=== PATIENT | female | born 1985 ===

== ENCOUNTER 2023-10-10 11:45 | Inpatient (IN) | payer OTHER ==
[~2023-10-10] VITALS: Ht 160 cm; Wt 86.2 kg
[2023-10-10 13:49] LABS: HEMATOCRIT 37.5 % (36.0-45.00); HEMOGLOBIN 12.5 g/dL (12.0-15.00); MEAN CELL VOLUME 87.4 fL (80.00-100.00); MEAN CORPUSCULAR HGB CONC 33.2 g/dl (32.0-36.0); PLATELET COUNT 215 K/uL (150-450); RED CELL DISTRIBUTION WIDTH 15.1 % (11.5-14.5)
[2023-10-10 14:02] LABS: URINE APPEARANCE Clear; URINE BILIRRUBIN Negative (NEGATIVE); URINE BLOOD Negative; URINE COLOR Yellow; URINE GLUCOSE Negative (NEGATIVE); URINE LEUKOCYTE Moderate; URINE NITRATE Negative; URINE PROTEIN Negative (NEGATIVE); URINE UROBILINOGEN 0.2 E.U./dl
[2023-10-10 14:06] LABS: URINE BACTERIA 733.1 uL (0.0-1933); URINE EPITHELIAL CELLS 15.6 uL (0.0-38.8); URINE RBC 4.3 uL (0.0-20.8); URINE WBC 106.3 uL (0.0-23.2)
[2023-10-10 14:18] LABS: INR 0.96; PARTIAL THROMBOPLASTIN TIME 25.2 SECONDS (22.0-34.0); PROTHROMBIN TIME 10.1 SECONDS (9.0-11.5)
[2023-10-10 14:30] LABS: ALBUMIN 3.6 gm/dL (3.4-5.0); BILIRUBIN TOTAL 0.55 mg/dL (0.3-1.2); CALCIUM 8.9 mg/dL (8.5-10.1); CREATININE SERUM 0.92 mg/dL (0.55-1.02); GFR 67.61; POTASSIUM 4.31 mEq/L (3.5-5.1); TOTAL PROTEIN 7.6 gm/dL (6.4-8.2)
[2023-10-14] MEDS ORDERED: CEFAZOLIN SODIUM 1,000 MG VIAL ONE (08:42)
[2023-10-14] MEDS ORDERED: POVIDONE-IODINE 118 ML BOTT TOP ONE (08:42)
[2023-10-14] MEDS ORDERED: CEFAZOLIN SODIUM 1,000 MG VIAL IV ONE (09:30)
[2023-10-14] MEDS ORDERED: THROMBIN,HU/FIBRINOGEN/CALCIUM 10 ML SYRINGE TOP ONE ×2 (11:51→12:00)
[2023-10-14] MEDS ORDERED: MEPERIDINE HCL/PF 50 MG/ML VIAL IV PRN (12:45)
[2023-10-14] MEDS ORDERED: RINGERS SOLUTION,LACTATED 1,000 ML IV SCH (12:45)
[2023-10-14] MEDS ORDERED: PROMETHAZINE HCL 25 MG/ML AMPUL IV PRN (12:45)
[2023-10-14 16:48] LABS: HEMOGLOBIN 11.3 g/dL (12.0-15.00); MEAN CELL VOLUME 89.1 fL (80.00-100.00); MEAN CORPUSCULAR HEMOGLOBIN 29.5 pg (27.00-32.0); MEAN CORPUSCULAR HGB CONC 33.1 g/dl (32.0-36.0); PLATELET COUNT 229 K/uL (150-450); RED BLOOD COUNT 3.82 M/uL (4.00-6.00); RED CELL DISTRIBUTION WIDTH 15.2 % (11.5-14.5)
[2023-10-14] MEDS ORDERED: CEFAZOLIN SODIUM 1,000 MG VIAL IV SCH (17:00)
[2023-10-15] MEDS ORDERED: IBUprofen 800 MG TABLET PO PRN (07:00)
[2023-10-15] MEDS ORDERED: OxyCODONE HCL/APAP UD (PERCOCET) PO PRN (07:00)
[2023-10-15] MEDS ORDERED: SIMETHICONE 125 MG CAPSULE PO SCH (09:00)
[2023-10-15] MEDS ORDERED: DOCUSATE SODIUM 100MG CAP PO SCH (09:00)
[2023-10-15] MEDS ORDERED: IBUprofen 800 MG TABLET PO SCH (17:00)
[2023-10-15] MEDS ORDERED: ACETAMINOPHEN 500 MG GEL..CAP PO SCH (18:00)
[2023-10-16] MEDS ORDERED: IBUPROFEN800 MG PO (08:09)
[2023-10-16] MEDS ORDERED: SIMETHICONE125 M1 PO (08:10)
[2023-10-16] MEDS ORDERED: COLACE100 MG PO (08:10)
== END 2023-10-16 09:37 | disposition home or self-care (01) | DRG 743 ==
LOC: O/R 10-14 05:32 → OB/GYN 10-14 11:45
PROVIDERS: ADMIT Student in an Organized Health Care Education/Training Program; ATTEND Student in an Organized Health Care Education/Training Program
PROC: 0UT70ZZ Resection of Bilateral Fallopian Tubes, Open Approach (ICD-10-PCS; 2023-10-14)
PROC: 0UT90ZZ Resection of Uterus, Open Approach (ICD-10-PCS; principal; 2023-10-14 14:30)
DX: D25.2 Subserosal leiomyoma of uterus (principal); N72 Inflammatory disease of cervix uteri; N80.203 Endometriosis of bilateral fallopian tubes, unspecified depth; Z20.822 Contact with and (suspected) exposure to COVID-19